=== PATIENT | male | born 1975 | race Caucasian/White ===

== ENCOUNTER 2020-09-27 16:21 | Emergency (ER) | payer BC, OTHER ==
[~2020-09-27] VITALS: Ht 165.1 cm; Wt 83.6 kg
[~2020-09-27 16:21] MED LIST: IBUP-1221 PO
--- NOTE | 2020-09-27 16:44 | NUR ---
LLQ/L-FLANK PAIN WITH NAUSEA/VOMITING. DYSURIA, SUBJECTIVE FEVER APPEARS WELL. TO RESTROOM FOR UA
[2020-09-27 17:34] LABS: MICROSCOPIC NOT IND
--- NOTE | 2020-09-27 17:40 | NUR ---
LAB AT BEDSIDE
--- NOTE | 2020-09-27 17:50 | NUR ---
to ct scan
[2020-09-27 17:51] LABS: BASOPHILS % (AUTO) 1 % (0-1); EOSINOPHILS % (AUTO) 4 % (1-7); LYMPHOCYTES % (AUTO) 40 % (22-44); MEAN CORPUSCULAR HEMOGLOBIN 29.3 pg (27.5-34.5); MEAN CORPUSCULAR HGB CONC 34.6 g/dL (33.2-36.2); MEAN PLATELET VOLUME 7.6 fL (7.4-10.4); MONOCYTES % (AUTO) 8 % (2-9); NEUTROPHILS % (AUTO) 46 % (42-75); PLATELET COUNT 288 x10^3/uL (130-400); RED BLOOD COUNT 5.02 x10^6/uL (4.38-5.82); RED CELL DISTRIBUTION WIDTH 12.8 % (9.4-14.8)
[2020-09-27 17:52] LABS: MD NO
[2020-09-27 18:02] LABS: ALBUMIN 3.7 g/dL (3.4-5.0); ANION GAP 4 mmol/L (5-15); CALCIUM 8.9 mg/dL (8.5-10.1); CHLORIDE 110 mmol/L (98-107)
[2020-09-27 19:05] VITALS: BP 139/73
== END 2020-09-27 19:07 | disposition home or self-care (01) ==
LOC: ED 16:57
DX: M54.9 Dorsalgia, unspecified (principal); R10.9 Unspecified abdominal pain; R11.2 Nausea with vomiting, unspecified; R19.7 Diarrhea, unspecified
CPT/HCPCS: 36415; 74176; 80048; 81003; 82040; 83690; 85025; 99284

== ENCOUNTER 2021-04-15 19:48 | Emergency (ER) | payer OTHER ==
[~2021-04-15] VITALS: Ht 165.1 cm; Wt 81.1 kg
[2021-04-15] MEDS ORDERED: DEXAMETHASONE 4 MG/ML, 1ML PO ONE (20:30)
[2021-04-15] MEDS ORDERED: SODIUM CHLORIDE 0.9% 1,000ML IVBOLUS ONE (23:00)
[2021-04-15] MEDS ORDERED: IBUPROFEN 600 MG TABLET PO ONE (23:00)
[2021-04-15] MEDS ORDERED: SODIUM CHLORIDE FLUSH 10ML SYR IVF ONE (23:00)
[2021-04-15 23:21] LABS: BASOPHILS % (AUTO) 1 % (0-1); EOSINOPHILS % (AUTO) 0 % (1-7); LYMPHOCYTES % (AUTO) 19 % (22-44); MEAN CORPUSCULAR HEMOGLOBIN 29.5 pg (27.5-34.5); MEAN CORPUSCULAR HGB CONC 34.2 g/dL (33.2-36.2); MEAN PLATELET VOLUME 7.6 fL (7.4-10.4); MONOCYTES % (AUTO) 8 % (2-9); NEUTROPHILS % (AUTO) 72 % (42-75); PLATELET COUNT 259 x10^3/uL (130-400); RED BLOOD COUNT 5.39 x10^6/uL (4.38-5.82); RED CELL DISTRIBUTION WIDTH 13.4 % (9.4-14.8)
--- NOTE | 2021-04-15 23:26 | NUR ---
metalworker: patient to room from lobby.
[2021-04-15 23:33] LABS: ALBUMIN 3.7 g/dL (3.4-5.0); ANION GAP 5 mmol/L (5-15); CALCIUM 9.2 mg/dL (8.5-10.1); CHLORIDE 99 mmol/L (98-107)
[2021-04-15 23:36] LABS: ALANINE AMINOTRANSFERASE 42 U/L (12-78); ALKALINE PHOSPHATASE 141 U/L (45-117); BILIRUBIN,TOTAL 0.6 mg/dL (0.2-1.0); CREATININE 1.13 mg/dL (0.7-1.3); TOTAL PROTEIN 8.7 g/dL (6.4-8.2)
[2021-04-15] MEDS ORDERED: IBUPROFEN 600 MG TABLET ONE (23:37)
[2021-04-15] MEDS ORDERED: DEXAMETHASONE 4 MG/ML, 1ML ONE (23:37)
--- NOTE | 2021-04-16 00:05 | NUR ---
VSS. WILL CONTINUE TO MONITOR
[2021-04-16] MEDS ORDERED: CASIRIVIMAB 600 MG, IMDEVIMAB (REGN10987) 600 MG in SODIUM CHLORIDE 0.9% 250 ML IVPB ONE (00:30)
[2021-04-16] MEDS ORDERED: FILTER 0.22 MICRON IV ONE (00:30)
--- NOTE | 2021-04-16 01:48 | NUR ---
PT REPORTS NO ADVERSE REACTION FROM MEDICATION INFUSION. WILL CONTINUE TO MONITOR FOR 1 HR PRIOR TO D/C
[2021-04-16 03:03] VITALS: BP 116/80
== END 2021-04-16 03:05 | disposition home or self-care (01) ==
LOC: ED 20:18
DX: U07.1 COVID-19 (principal); B34.9 Viral infection, unspecified; J06.9 Acute upper respiratory infection, unspecified; R06.02 Shortness of breath
CPT/HCPCS: 36415; 71045; 80053; 85025; 93005; 96360; 96361; 99285; J1100; J7030; M0243; U0003; U0005